=== PATIENT | male | born 1995 | race Caucasian/White ===

== ENCOUNTER 2019-07-01 11:52 | Emergency (ER) | payer OTHER, MEDICAID ==
--- NOTE | 2019-07-01 12:24 | ED Physician Documentation ---
History of Present Illness - Stated complaint Stated Complaint: ABD PX - Chief complaint Chief Complaint: General - History obtained from History obtained from: Patient (Previously healthy 23-year-old gentleman although he has a history of kidney stones. He presents today with 2 separate complaints. He has had a nonpainful growing lymph node on the left anterior cervical chain for the last month or so. Secondly he has had about 2 days of mild but persistent right lower quadrant pain. It is worse at night and when he is laying flat. He has chronic constipation is not new. No acute urinary complaints but he notes chronic right scrotal pain when having sex. He is monogamous with his girlfriend, they have been together for 2 years. Denies weight loss or night sweats.) Review of Systems Ten Systems: 10 systems reviewed and negative Constitutional: denies: Fever, Chills Nose: denies: Rhinorrhea / runny nose, Congestion Throat: denies: Sore throat GI: denies: Nausea, Vomiting, Diarrhea PD PAST MEDICAL HISTORY - Allergies Allergies/Adverse Reactions: Allergies Allergy/AdvReac Type Severity Reaction Status Date / Time No Known Drug Allergies Allergy Verified 07/01/19 12:11 PD ED PE NORMAL - Vitals Vital signs reviewed: Yes - General General: Alert and oriented X 3, No acute distress - HEENT HEENT: Other (Shotty anterior cervical adenopathy including a single 2 cm left side anterior cervical node that is firm and nontender.) - Neck Neck: Supple, no meningeal sign, No bony TTP - Cardiac Cardiac: RRR, No murmur - Respiratory Respiratory: No respiratory distress, Clear bilaterally - Abdomen Abdomen: Other (Mild right lower quadrant tenderness, no surgical signs) - Neuro Neuro: Alert and oriented X 3, Normal speech Results - Vitals Vitals: Vital Signs - 24 hr 07/01/19 07/01/19 07/01/19 12:07 12:39 14:18 Temperature 36.4 C L 37.1 C 37.1 C Heart Rate 67 63 57 L Respiratory 16 16 14 Rate Blood Pressure 149/86 H 146/92 H 116/57 L O2 Saturation 97 100 100 Oxygen O2 Source Room air - Labs Labs: Laboratory Tests 07/01/19 07/01/19 07/01/19 12:30 12:30 12:30 WBC 12.1 H RBC 4.98 Hgb 15.2 Hct 43.3 MCV 86.9 MCH 30.5 MCHC 35.1 RDW 13.1 Plt Count 361 MPV 8.4 Neut # (Auto) 7.8 H Lymph # (Auto) 2.9 Thurston # (Auto) 0.9 Eos # (Auto) 0.3 Baso # (Auto) 0.1 Absolute Nucleated RBC 0.00 Nucleated RBC % 0.0 Sodium 136 Potassium 4.2 Chloride 100 L Carbon Dioxide 26 Anion Gap 10.0 BUN 14 Creatinine 0.7 Estimated GFR (MDRD) 139 Glucose 87 Calcium 9.3 Total Bilirubin 0.5 AST 24 ALT 23 Alkaline Phosphatase 77 Total Protein 8.3 H Albumin 5.0 Globulin 3.3 Albumin/Globulin Ratio 1.5 Lipase 27 Urine Color Urine Clarity Urine pH Ur Specific [place] Urine Protein Urine Glucose (UA) Urine Ketones Urine Occult Blood Urine Nitrite Urine Bilirubin Urine Urobilinogen Ur Leukocyte Esterase Ur Microscopic Review Urine Culture Comments Infectious Thurston Assay NEGATIVE 07/01/19 12:40 WBC RBC Hgb Hct MCV MCH MCHC RDW Plt Count MPV Neut # (Auto) Lymph # (Auto) Thurston # (Auto) Eos # (Auto) Baso # (Auto) Absolute Nucleated RBC Nucleated RBC % Sodium Potassium Chloride Carbon Dioxide Anion Gap BUN Creatinine Estimated GFR (MDRD) Glucose Calcium Total Bilirubin AST ALT Alkaline Phosphatase Total Protein Albumin Globulin Albumin/Globulin Ratio Lipase Urine Color YELLOW Urine Clarity CLEAR Urine pH 8.0 H Ur Specific [place] 1.015 Urine Protein TRACE Urine Glucose (UA) NEGATIVE Urine Ketones NEGATIVE Urine Occult Blood NEGATIVE Urine Nitrite NEGATIVE Urine Bilirubin NEGATIVE Urine Urobilinogen 0.2 (NORMAL) Ur Leukocyte Esterase NEGATIVE Ur Microscopic Review NOT INDICATED Urine Culture Comments NOT INDICATED Infectious Thurston Assay - Rads (name of study) CT of the abdomen and pelvis with IV contrast Radiology: Final report received, EMP read contemporaneously, See rad report (Colitis, although he has abdominal pain he does not have any diarrhea, in fact he has the opposite.) Ct Neck Radiology: EMP read contemporaneously (Reactive lymphadenopathy) PD MEDICAL DECISION MAKING - ED course ED course: 23-year-old gentleman presents with 2 complaints, 1 of abdominal pain, relatively benign exam. Declined pain medications. Second complaint was of 1 month of adenopathy which is not particularly painful in the left neck. This is concerning for neoplasm although CT of the area is suggested more of a reactive process, follow-up with ENT closely was advised and he understands. Departure - Departure Disposition: 01 Home, Self Care Clinical Impression: Cervical lymphadenopathy Abdominal pain Qualifiers: Abdominal location: generalized Qualified Code(s): R10.84 - Generalized abdominal pain Condition: Good Record reviewed to determine appropriate education?: Yes Instructions: Lymphadenopathy, ED Abdominal Pain Unkn Cause Comments: You were seen today for lymphadenopathy in the neck, and abdominal pain. The CAT scan of your abdomen shows no acute abnormality is, return if it worsens or is not gone in the next day or 2. You can take Tylenol as needed for the pain. For the lymph node, you need to follow-up with surgeon for consideration for biopsy. The closest ENT surgeon is in [place], phone number is [phone]. Call today for the next available appointment. Make sure that they know that this is already been going on for a month. Discharge Date/Time: 07/01/19 15:12
[2019-07-01 12:44] LABS: BASOPHILS # (AUTO) 0.1 10^3/uL (0.0-0.1); EOSINOPHILS # (AUTO) 0.3 10^3/uL (0.0-0.7); EOSINOPHILS % (AUTO) 2.6 %; HGB - HEMOGLOBIN 15.2 g/dL (14.0-18.0); LYMPHOCYTES # (AUTO) 2.9 10^3/uL (1.5-3.5); LYMPHOCYTES % (AUTO) 24.2 %; MEAN CORPUSCULAR HEMOGLOBIN 30.5 pg (27.0-31.0); MEAN CORPUSCULAR HGB CONC 35.1 g/dL (32.0-36.0); MEAN CORPUSCULAR VOLUME 86.9 fL (80.0-94.0); MEAN PLATELET VOLUME 8.4 fL (7.4-11.4); MONOCYTES # (AUTO) 0.9 10^3/uL (0.0-1.0); MONOCYTES % (AUTO) 7.3 %; NEUTROPHILS # (AUTO) 7.8 10^3/uL (1.5-6.6); NEUTROPHILS % (AUTO) 64.2 %; PLT - PLATELET COUNT 361 10^3/uL (130-450); RED BLOOD COUNT 4.98 10^6/uL (4.70-6.10); RED CELL DISTRIBUTION WIDTH 13.1 % (12.0-15.0); WHITE BLOOD COUNT 12.1 x10^3/uL (4.8-10.8)
[2019-07-01 12:47] LABS: BILIRUBIN,URINE NEGATIVE (NEGATIVE); GLUCOSE, URINE (UA) NEGATIVE (NEGATIVE); KETONES,URINE (UA) NEGATIVE (NEGATIVE); LEUKOCYTE ESTERASE, URINE NEGATIVE (NEGATIVE); NITRITE,URINE NEGATIVE (NEGATIVE); OCCULT BLOOD,URINE NEGATIVE (NEGATIVE); PROTEIN,URINE TRACE mg/dL (NEGATIVE); UROBILINOGEN,URINE 0.2 (NORMAL) E.U./dL (NORMAL)
[2019-07-01 12:48] LABS: CLARITY,URINE CLEAR (CLEAR)
[2019-07-01] MEDS ORDERED: IOVERSOL 320 100 ML VIAL IVP ONE ×2 (12:50→14:31)
[2019-07-01 12:56] LABS: ALBUMIN/GLOBULIN RATIO 1.5 (1.0-2.2); BILIRUBIN,TOTAL 0.5 mg/dL (0.2-1.0); CALCIUM 9.3 mg/dL (8.5-10.3); CREATININE 0.7 mg/dL (0.6-1.2); TOTAL PROTEIN 8.3 g/dL (6.7-8.2)
[2019-07-01 14:19] VITALS: BP 116/57
--- NOTE | 2019-07-01 14:42 | CT Report ---
Reason: IV only, RLQ pain Procedure Date: 07/01/2019 Accession Number: [id number] / [id number] Procedure: CT - Abdomen/Pelvis W CPT Code: Final Report FULL RESULT: EXAM: CT ABDOMEN AND PELVIS EXAM DATE: 07/01/2019 01:54 PM. CLINICAL HISTORY: RLQ pain. COMPARISONS: None. TECHNIQUE: Routine helical CT imaging was performed through the abdomen and pelvis. IV contrast: 100 mL OPTIRAY 320. Enteric contrast: No. Reconstructions: Coronal and sagittal. In accordance with CT protocol optimization, one or more of the following dose reduction techniques were utilized for this exam: automated exposure control, adjustment of mA and/or KV based on patient size, or use of iterative reconstructive technique. FINDINGS: Lung Bases: Unremarkable. Liver: Homogeneous without focal mass. Gallbladder/Bile Ducts: Unremarkable. Spleen: Unremarkable. Pancreas: Unremarkable. Adrenal Glands: Unremarkable. Kidneys: Symmetric enhancement. No hydronephrosis or mass on either side. Peritoneal Cavity/Bowel: No bowel obstruction. Limitation in assessment of: secondary to poor distention. Difficult to completely exclude mild colonic wall thickening. No acute focal inflammatory change identified. No free air. No discrete collection. No bulky adenopathy. Appendix appears to be unremarkable. Pelvic Organs: The bladder and visualized pelvic organs are within normal limits. Vasculature: No aneurysms or other significant abnormality. Bones: No significant abnormality. Other: None. IMPRESSION: 1. No acute focal inflammatory changes or evidence of obstruction identified within the abdomen or pelvis. Appendix appears unremarkable. 2. Underdistention of the colon limits assessment, and mild fairly diffuse colonic thickening is possible. This may be artifactual secondary to the underdistention. However, correlate with clinical history for the possibility of a mild colitis. RADIA
--- NOTE | 2019-07-01 15:16 | CT Report ---
Reason: L cerv adenopathy Procedure Date: 07/01/2019 Accession Number: [id number] / [id number] Procedure: CT - SOFT TISSUE NECK W CPT Code: Final Report FULL RESULT: EXAM: CT SOFT TISSUE NECK WITH CONTRAST. EXAM DATE: 07/01/2019 01:54 PM. HISTORY: L cerv adenopathy. COMPARISONS: ABDOMEN/PELVIS W 07/01/2019 1:16 PM. TECHNIQUE: Routine soft tissue neck CT protocol with contrast. Reconstructions: Coronal and sagittal. IV contrast: OPTIRAY 320. In accordance with CT protocol optimization, one or more of the following dose reduction techniques were utilized for this exam: automated exposure control, adjustment of mA and/or KV based on patient size, or use of iterative reconstructive technique. FINDINGS: Visualized Intracranial Contents: Unremarkable. Orbits: Symmetric and unremarkable. Sinuses: Mild left maxillary sinus mucosal thickening. No sinus fluid levels. Oral cavity: The visualized oral cavity is unremarkable. The floor of the mouth is symmetric. Pharynx: Pharyngeal mucosa is unremarkable. The infratemporal fossa, parapharyngeal spaces, and retropharyngeal space are unremarkable. The base of the tongue is symmetric and unremarkable. The airway is patent. Larynx: Larynx and supraglottic airway are patent without mass lesion. Vocal cords are symmetric. The visualized trachea is unremarkable. Parotid and Submandibular Glands: Symmetric and unremarkable. Lymph Nodes: There are enlarged left level 2 cervical lymph nodes. Left 2A lymph node measures 1.6 cm in short axis. No additional enlarged lymph nodes. Soft tissues: Soft tissues are unremarkable. No mass lesion or abnormal enhancement. Vascular Structures: Unremarkable. Thyroid Gland: Normal. Lung: There are several peripheral blebs at the lung apices. No pulm anterior parenchymal opacity. Bones: No evidence of acute fracture or malalignment. Other: None. IMPRESSION: 1. Mild left upper cervical adenopathy. There is most likely reactive although imaging differential considerations include autoimmune or neoplastic processes. 2. Otherwise normal neck CT. RADIA
== END 2019-07-01 15:12 | disposition home or self-care (01) ==
LOC: ED 11:52
DX: R59.0 Localized enlarged lymph nodes (principal); R10.31 Right lower quadrant pain
CPT/HCPCS: 1040M; 36415; 70491; 74177; 80053; 81003; 83690; 85025; 86308; 99284; Q9967; 81001; 87086

== ENCOUNTER 2020-06-21 15:14 | Emergency (ER) | payer MEDICAID ==
[2020-06-21] MEDS ORDERED: ALBUTEROL 1 PUFF INH STA (16:12)
--- NOTE | 2020-06-21 16:40 | XRAY Report ---
PROCEDURE: Chest 2 View X-Ray INDICATIONS: cough TECHNIQUE: 2 view(s) of the chest. COMPARISON: None. FINDINGS: Surgical changes and devices: None. Lungs and pleura: No pleural effusions or pneumothorax. Lungs are clear. Mediastinum: Mediastinal contours are normal. Heart size is normal. Bones and chest wall: No suspicious bony abnormalities. Soft tissues appear unremarkable. IMPRESSION: Chest without acute cardiopulmonary abnormalities. No focal airspace disease. Reviewed by: Jorge Prieto MD on 06/21/2020 3:39 PM [place] Approved by: Jorge Prieto MD on 06/21/2020 3:39 PM [place] Station ID: [id number]
--- NOTE | 2020-06-21 16:48 | ED Physician Documentation ---
PD HPI URI - Stated complaint Stated Complaint: COUGH/CONGESTION - Chief complaint Chief Complaint: Resp - History obtained from History obtained from: Patient - History of Present Illness Timing - onset: Yesterday Timing duration: Days (2) Timing details: Gradual onset Associated symptoms: Nasal congestion, Rhinorrhea, Sore throat, Productive cough. No: Fever, Chills Contributing factors: No: Sick contact Improves by: Rest Worsened by: Activity, Breathing Recently seen: Not recently seen Review of Systems Constitutional: denies: Fever, Chills Nose: reports: Rhinorrhea / runny nose, Congestion Respiratory: reports: Cough GI: denies: Abdominal Pain, Nausea, Vomiting, Diarrhea : denies: Dysuria Skin: denies: Rash Musculoskeletal: denies: Neck pain, Back pain Neurologic: denies: Headache PD PAST MEDICAL HISTORY - Past Medical History Cardiovascular: None Respiratory: None Neuro: None Endocrine/Autoimmune: None GI: None : Kidney stones HEENT: None Psych: None Musculoskeletal: None Derm: None - Past Surgical History Past Surgical History: Yes - Present Medications Home Medications: Ambulatory Orders Medication Instructions Recorded Confirmed Albuterol Sulf [Ventolin Hfa 1 - 2 puffs INH Q4HR PRN #1 inhaler 06/21/20 Inhaler] Benzonatate [Tessalon] 200 mg PO TID PRN #30 cap 06/21/20 Cetirizine HCl/Pseudoephedrine 1 each PO BID PRN #30 ea 06/21/20 [Zyrtec-D Tablet] - Allergies Allergies/Adverse Reactions: Allergies Allergy/AdvReac Type Severity Reaction Status Date / Time No Known Drug Allergies Allergy Verified 06/21/20 15:45 - Social History Does the pt smoke?: Yes Smoking Status: Current every day smoker Does the pt drink ETOH?: Yes Does the pt have substance abuse?: No - Immunizations Immunizations are current?: Yes - POLST Patient has POLST: No PD ED PE NORMAL - Vitals Vital signs reviewed: Yes - General General: Alert and oriented X 3, No acute distress, Well developed/nourished - HEENT HEENT: PERRL, Ears normal, Moist mucous membranes, Pharynx benign - Neck Neck: Supple, no meningeal sign, No adenopathy - Cardiac Cardiac: RRR, Strong equal pulses - Respiratory Respiratory: No respiratory distress, Other (Mild wheezing bilaterally) - Abdomen Abdomen: Soft, Non tender, Non distended - Derm Derm: Warm and dry - Extremities Extremities: No edema - Neuro Neuro: Alert and oriented X 3 - Psych Psych: Normal mood, Normal affect Results - Vitals Vitals: Vital Signs - 24 hr 06/21/20 06/21/20 06/21/20 15:39 16:33 16:51 Temperature 36.9 C Heart Rate 74 70 86 Respiratory 16 14 19 Rate Blood Pressure 149/98 H 110/92 H O2 Saturation 100 96 Oxygen O2 Source Room air - Rads (name of study) cxr Radiology: Prelim report reviewed, EMP read contemporaneously, See rad report (Chest without acute cardiopulmonary abnormalities. No focal airspace disease. ) PD MEDICAL DECISION MAKING - ED course Complexity details: reviewed results, re-evaluated patient, considered differential, d/w patient ED course: 24-year-old male with what appears to be a viral upper respiratory infection. He is well-appearing, nontoxic. Afebrile. Will prescribe an inhaler for home, encouraged him to stop smoking. No indication for antibiotics at this time. Covid swab sent as well. Patient counseled regarding signs and symptoms for which I believe and urgent re-evaluation would be necessary. Patient with good understanding of and agreement to plan and is comfortable going home at this time This document was made in part using voice recognition software. While efforts are made to proofread this document, sound alike and grammatical errors may occur. Departure - Departure Disposition: 01 Home, Self Care Clinical Impression: Viral syndrome Condition: Good Instructions: ED Viral Syndrome Follow-Up: your,doctor in 1 week for recheck [Other] Prescriptions: Albuterol Sulf [Ventolin Hfa Inhaler] 1 - 2 puffs INH Q4HR PRN #1 inhaler PRN Reason: Shortness Of Air/Wheezing Benzonatate [Tessalon] 200 mg PO TID PRN #30 cap PRN Reason: Cough Cetirizine HCl/Pseudoephedrine [Zyrtec-D Tablet] 1 each PO BID PRN #30 ea PRN Reason: nasal congestion Comments: There is no pneumonia on your x-ray today. Antibiotics are not indicated at t his time. We will have you follow-up with your doctor in 1 to 2 weeks if not improved. Return if you worsen. Your Covid test will take 2 to 3 days to return. You have a Covid test pending. You need to self quarantine until the result is done and negative. Do not leave your house. Do not get near anybody. The results should be done in 48 to 72 hours. We will call with a positive result, the fastest way to get a negative result for confirmation though is to go to the hospital website at [email or web address], click on the my [facility] tab and sign up for the patient portal. If any friends or family get sick and would like to have a Covid test done, but do not have signs or symptoms that would necessitate being hospitalized, we encourage testing through our coronavirus swabbing station, call [phone] to schedule an appointment. Discharge Date/Time: 06/21/20 17:11
[2020-06-21 16:53] VITALS: BP 110/92
== END 2020-06-21 17:11 | disposition home or self-care (01) ==
LOC: ED 15:14
DX: B34.9 Viral infection, unspecified (principal); F17.200 Nicotine dependence, unspecified, uncomplicated
CPT/HCPCS: 94640; 99284

== ENCOUNTER 2020-12-26 12:10 | Outpatient (CLI) | payer MEDICAID ==
[2020-12-26 17:54] LABS: BASOPHILS # (AUTO) 0.1 10^3/uL (0.0-0.1); BASOPHILS % (AUTO) 0.8 %; EOSINOPHILS # (AUTO) 0.2 10^3/uL (0.0-0.7); EOSINOPHILS % (AUTO) 2.4 %; HCT - HEMATOCRIT 39.6 % (42.0-52.0); HGB - HEMOGLOBIN 13.1 g/dL (14.0-18.0); LYMPHOCYTES # (AUTO) 2.6 10^3/uL (1.5-3.5); LYMPHOCYTES % (AUTO) 28.5 %; MEAN CORPUSCULAR HEMOGLOBIN 30.1 pg (27.0-31.0); MEAN CORPUSCULAR HGB CONC 33.1 g/dL (32.0-36.0); MEAN PLATELET VOLUME 9.4 fL (7.4-11.4); MONOCYTES # (AUTO) 0.8 10^3/uL (0.0-1.0); MONOCYTES % (AUTO) 8.9 %; NEUTROPHILS # (AUTO) 5.4 10^3/uL (1.5-6.6); NEUTROPHILS % (AUTO) 59.2 %; PLT - PLATELET COUNT 334 10^3/uL (130-450); RED BLOOD COUNT 4.35 10^6/uL (4.70-6.10); RED CELL DISTRIBUTION WIDTH 13.2 % (12.0-15.0); WHITE BLOOD COUNT 9.1 x10^3/uL (4.8-10.8)
[2020-12-26 18:12] LABS: ALBUMIN 4.4 g/dL (3.2-5.5); ALBUMIN/GLOBULIN RATIO 1.5 (1.0-2.2); ALKALINE PHOSPHATASE 64 IU/L (42-121); ALT ALANINE AMINOTRANSFERASE 20 IU/L (10-60); AST ASPARTATE AMINOTRANSFERASE 17 IU/L (10-42); BILIRUBIN,TOTAL 0.5 mg/dL (0.2-1.0); BUN - BLOOD UREA NITROGEN 14 mg/dL (6-20); CALCIUM 9.3 mg/dL (8.5-10.3); CARBON DIOXIDE - CO2 24 mmol/L (21-32); CHLORIDE 104 mmol/L (101-111); CHOL/HDL RATIO 4.5 (<5.0); CHOLESTEROL 154 mg/dL; CREATININE 0.6 mg/dL (0.6-1.2); GFR - MDRD 163 (>89); GLUCOSE 91 mg/dL (70-100); HDL CHOLESTEROL 34 mg/dL; LDL CHOLESTEROL,CALCULATED 106 mg/dL; LDL/HDL RATIO 3.1 (<3.6); POTASSIUM 3.9 mmol/L (3.5-5.0); SODIUM 136 mmol/L (135-145); TOTAL PROTEIN 7.3 g/dL (6.7-8.2); TRIGLYCERIDES 68 mg/dL; VLDL CHOLESTEROL 14 mg/dL
[2020-12-26 18:19] LABS: BILIRUBIN,URINE NEGATIVE (NEGATIVE); GLUCOSE, URINE (UA) NEGATIVE (NEGATIVE); KETONES,URINE (UA) NEGATIVE (NEGATIVE); LEUKOCYTE ESTERASE, URINE NEGATIVE (NEGATIVE); NITRITE,URINE NEGATIVE (NEGATIVE); OCCULT BLOOD,URINE NEGATIVE (NEGATIVE); PROTEIN,URINE TRACE mg/dL (NEGATIVE); UROBILINOGEN,URINE 0.2 (NORMAL) E.U./dL (NORMAL)
[2020-12-26 18:20] LABS: CLARITY,URINE CLEAR (CLEAR); THYROID STIMULATING HORMONE 0.66 uIU/mL (0.34-5.60)
[2020-12-26 18:31] LABS: BACTERIA,URINE Rare /HPF (None Seen); RBC,URINE 0-5 /HPF (0-5); SPERM,URINE PRESENT; SQUAMOUS EPITHELIAL CELL,UR RARE Squamous (<= Few); WBC,URINE 0-3 /HPF (0-3)
== END 2020-12-26 12:11 | disposition home or self-care (01) ==
LOC: LAB.WCP 12:10
PROVIDERS: ATTEND Nurse Practitioner
DX: R53.83 Other fatigue (principal); Z13.220 Encounter for screening for lipoid disorders; R59.1 Generalized enlarged lymph nodes
CPT/HCPCS: 36415; 80053; 80061; 81001; 83721; 84443; 85025; 87086

== ENCOUNTER 2021-02-28 10:54 | Outpatient (CLI) | payer MEDICAID ==
[2021-02-28] MEDS ORDERED: IOVERSOL 320 100 ML VIAL IVP ONE ×2 (11:13→11:30)
--- NOTE | 2021-02-28 12:06 | CT Report ---
PROCEDURE: SOFT TISSUE NECK W INDICATIONS: DIFFUSE LYMPHADENOPATHY CONTRAST: IV CONTRAST: Optiray 320 ml: 100 PO CONTRAST: *NO PO CONTRAST TECHNIQUE: After the administration of intravenous contrast, 3.0 mm axial sections acquired from the sella to th e aortic arch. Additional oblique axial 3.0 mm sections acquired through the pharynx. 3 mm thick co carlos reformats were generated. For radiation dose reduction, the following was used: automated exp osure control, adjustment of mA and/or kV according to patient size. COMPARISON: CT neck 07/01/2019. FINDINGS: Image quality: Excellent. Lymph nodes: Left level 2A lymph node remains prominent measuring 1.4 cm in short axis compared to 1. 7 cm on prior exam. There is a 1.0 cm right level 2A lymph node in short axis compared to 1.1 cm on p rior exam. Additional scattered subcentimeter/borderline enlarged lymph nodes are present within the neck bilaterally unchanged. Vessels: Visualized vasculature appears patent. Neck spaces: The oropharynx, nasopharynx, and pharynx demonstrate no mucosal lesions. The vocal cor ds, false vocal cords, pyriform sinuses, epiglottis, vallecula, and tongue base all appear normal. E xtramucosal spaces appear unremarkable. Glands: The parotid and submandibular glands appear normal. The thyroid is normal in size and there are no incidental findings. Miscellaneous: Visualized brain and orbits appear normal. Lung apices appear clear. Superficial so ft tissues appear normal. Bones: No suspicious bony lesions. Visualized sinuses and mastoids appear unremarkable. IMPRESSION: 1. Bilateral mildly enlarged/borderline lymph nodes similar versus minimally decreased compared to pr ior exam. No new areas of adenopathy are identified. Reviewed by: Gita Adams MD on 02/28/2021 12:04 PM PST Approved by: Gita Adams MD on 02/28/2021 12:04 PM PST Station ID: [id number]
== END 2021-02-28 10:55 | disposition home or self-care (01) ==
LOC: DI 10:54
PROVIDERS: ATTEND Nurse Practitioner
DX: R59.0 Localized enlarged lymph nodes (principal)
CPT/HCPCS: 70491; Q9967

== ENCOUNTER 2021-03-28 17:06 | Outpatient (CLI) | payer MEDICAID ==
--- NOTE | 2021-04-05 17:27 | Ultrasound Report ---
PROCEDURE: Head or Neck Soft Tissue INDICATIONS: LYMPHADENOPATHY, DIFFUSE TECHNIQUE: Real time scanning was performed of the neck region of interest, with image documentation . COMPARISON: CT neck 02/28/2021. FINDINGS: There are bilateral enlarged elongated submandibular lymph nodes with preserved with indistinct fatty leonie and mild cortical thickening. The largest right mandibular node measures up to approximately 3. 6 x 0.5 cm. The largest left submandibular node measures up to approximately 4.1 x 1.0 cm. There is a subcutaneous cyst anterior to the left parotid gland which extends to the skin, measuring approximately 1.1 x 0.4 x 0.8 cm likely representing a sebaceous cyst. IMPRESSION: 1. Bilateral enlarged submandibular lymph nodes are nonspecific and may be reactive but a neoplastic process cannot be excluded. Recommend further evaluation with ultrasound-guided fine-needle aspiratio n. Reviewed by: Schuyler Jalloh MD on 04/05/2021 5:26 PM PST Approved by: Schuyler Jalloh MD on 04/05/2021 5:26 PM PST Station ID: [id number]
== END 2021-03-28 17:07 | disposition home or self-care (01) ==
LOC: DI 17:06
PROVIDERS: ATTEND Nurse Practitioner
DX: R59.1 Generalized enlarged lymph nodes (principal)

== ENCOUNTER 2021-04-18 12:37 | Outpatient (CLI) | payer MEDICAID ==
[~2021-04-18 12:37] MED LIST: lidocaine 1% 20 ML MDV ONE
--- NOTE | 2021-04-18 14:56 | Ultrasound Report ---
PROCEDURE: Needle Bx Lymph Node INDICATIONS: Cervical lymphadenopathy. TECHNIQUE: The indications, alternatives, benefits, risks, and complications of the procedure were e xplained to the patient. Written informed consent was obtained and placed in the chart. Real-time sonography was utilized to choose the site for percutaneous lymph node sampling. The skin was prepped and draped in the usual sterile fashion. 1% lidocaine was infiltrated down to the site o f interest. Serial hypodermic needles were then advanced into the site of interest under direct sono graphic visualization, and serial needle aspirates were obtained. The needles were then withdrawn; a bandage was applied to the procedure site. COMPARISON: None. FINDINGS: Sample site(s): Left submandibular station lymph node Needle: 18-gauge core needle biopsy and 25-gauge fine-needle aspiration Number of passes: 3 core needle biopsies and 2 fine-needle aspirations. Medications: 1% lidocaine for local anaesthesia. Complications: None. IMPRESSION: Successful ultrasound-guided left submandibular station lymph node fine needle aspiration, with cytol ogy results pending. Reviewed by: Wyatt Franco MD on 04/18/2021 2:54 PM PST Approved by: Wyatt Franco MD on 04/18/2021 2:54 PM PST Station ID: [id number]
== END 2021-04-18 12:38 | disposition home or self-care (01) ==
LOC: DI 12:37
PROVIDERS: ATTEND Nurse Practitioner
DX: R59.1 Generalized enlarged lymph nodes (principal)
CPT/HCPCS: 38505